=== PATIENT | male | born 1970 | race Two or more races ===

== ENCOUNTER 2016-10-19 11:14 | Emergency (ER) | payer OTHER ==
[2016-10-19] MEDS: IOPAMIDOL 300 (61%) 150 ML VIAL IV ONE (12:41)
--- NOTE | 2016-10-19 12:52 | CT ---
CHEST W/ CON, ABD/PELVIS W/ CON COMPARISON: None HISTORY: 46-year-old male. The patient fell approximately 3 feet onto a log and now has left flank and left upper quadrant pain. Technique: Intravenous injection 125 mL Isovue 300. Using a [employer] Aquilion [address] scanner, images were obtained through the thorax, abdomen, and pelvis. An automated dose reduction technique was used to minimize patient radiation dose. Dose information: CTDIvol (mGy): 9.00 DLP(mGycm): 668.90 FINDINGS (THORAX WITH CONTRAST): Lungs: Normal. Trachea and bronchi: Normal. Heart and vessels: Normal. Mediastinum and dante: Normal. Esophagus: Normal. Pleura and pericardium: Normal. Chest wall and bones: Normal. Upper abdomen: Normal. FINDINGS (ABDOMEN AND PELVIS WITH CONTRAST): Liver: Normal. Gallbladder: Normal. Bile ducts: Normal. Pancreas: Normal. Spleen: Normal. Adrenal glands: Normal. Kidneys: Normal. Ureters: Normal. Urinary bladder: Normal. Prostate gland and seminal vesicles:: Normal Blood vessels: Minimal atherosclerotic calcific plaquing of the aorta and the common iliac arteries. Lymph nodes: Normal. Stomach: Normal. Duodenum: Normal. Small intestine: Normal. Appendix: Normal. Colon: Normal. Abdominal wall and supporting musculature: Normal. Bones: Normal. IMPRESSION: 1. Normal CT of the thorax with contrast. 2. Normal CT of the abdomen and pelvis with contrast. 3. Incidentally noted minimal atherosclerosis of the aorta and the common iliac arteries.
== END 2016-10-19 13:28 | disposition home or self-care (01) ==
LOC: ED 11:14
DX: S29.9XXA Unspecified injury of thorax, initial encounter (principal); R07.9 Chest pain, unspecified; E11.9 Type 2 diabetes mellitus without complications; W18.30XA Fall on same level, unspecified, initial encounter; Y92.89 Other specified places as the place of occurrence of the external cause; Y99.0 Civilian activity done for income or pay
CPT/HCPCS: 74177; 71260; 99283; 99284; Q9967